=== PATIENT | female | born 1995 | race American Indian/Alaskan Native ===

== ENCOUNTER 2020-06-09 00:13 | Outpatient (CLI) | payer MEDICAID, OTHER ==
[2020-06-09] MEDS ORDERED: LACTATED RINGERS 500 ML IV ONE (00:27)
[2020-06-09 00:54] LABS: Bacteria,Urine 1+ /HPF (Negative); Bilirubin,Urine NEG (Negative); Blood,Urine NEG (Negative); Color,Urine Yellow (Yellow); Mucus,Urine FEW /HPF; Protein,Urine <15 mg/dL mg/dL (Negative); Urobilinogen,Urine < 2.0 mg/dL (<2.0)
[2020-06-09] MEDS ORDERED: TERBUTALINE 1 MG/1 ML INJ SUB-Q SCH (01:00)
[2020-06-09 01:39] VITALS: BP 106/57
[2020-06-09] MEDS ORDERED: NIFEdipine*For Tocolysis only* 10 MG CAPSULE PO ONE (02:47)
== END 2020-06-09 02:58 | disposition home or self-care (01) ==
LOC: TRG 00:13 → APU 00:15 → TRG 02:58
PROVIDERS: ATTEND Obstetrics & Gynecology
DX: O62.9 Abnormality of forces of labor, unspecified (principal); O99.343 Other mental disorders complicating pregnancy, third trimester; F41.9 Anxiety disorder, unspecified; F32.9 Major depressive disorder, single episode, unspecified; Z3A.31 31 weeks gestation of pregnancy
CPT/HCPCS: 36415; 59025; 81001; 82731; J7120; 96360

== ENCOUNTER 2020-06-26 01:37 | Outpatient (CLI) | payer MEDICAID ==
[2020-06-26 01:52] VITALS: BP 129/68
[2020-06-26] MEDS ORDERED: LACTATED RINGERS 1,000 ML IV ONE (02:17)
[2020-06-26 02:49] LABS: Bacteria,Urine 1+ /HPF (Negative); Bilirubin,Urine NEG (Negative); Blood,Urine MOD (Negative); Color,Urine Yellow (Yellow); Urobilinogen,Urine < 2.0 mg/dL (<2.0)
[2020-06-26] MEDS ORDERED: TERBUTALINE 1 MG/1 ML INJ SUB-Q ONE (03:52)
[2020-06-26] MEDS ORDERED: BUTORPHANOL 2 MG/1 ML INJ IV ONE (03:53)
== END 2020-06-26 05:15 | disposition home or self-care (01) ==
LOC: TRG 01:37 → APU 01:39 → TRG 05:15
PROVIDERS: ATTEND Obstetrics & Gynecology
DX: O26.893 Other specified pregnancy related conditions, third trimester (principal); R10.30 Lower abdominal pain, unspecified; M54.5 Low back pain; O47.03 False labor before 37 completed weeks of gestation, third trimester; Z3A.33 33 weeks gestation of pregnancy
CPT/HCPCS: 59025; 81001; 96361; 96372; 96374; J0595; J3105; J7120; 96360

== ENCOUNTER 2020-08-11 11:23 | Inpatient (IN) | payer MEDICAID ==
[2020-08-11] MEDS ORDERED: LOPERAMIDE 2 MG CAP PO PRN (13:23)
[2020-08-11] MEDS ORDERED: CARBOPROST TROMETHAMINE 250 MCG/1 ML INJ IM PRN (13:23)
[2020-08-11] MEDS ORDERED: miSOPROStol 200 MCG TAB PR PRN (13:23)
[2020-08-11] MEDS ORDERED: ePHEDrine SULFATE 50 MG/1 ML INJ IV PRN ×2 (13:23→16:21)
[2020-08-11] MEDS ORDERED: LIDOCAINE (2%) 20 MG/1 ML VIAL 20 ML MDV INFILTRATI ONE (13:23)
[2020-08-11] MEDS ORDERED: BUTORPHANOL 2 MG/1 ML INJ IV PRN (13:23)
[2020-08-11] MEDS ORDERED: MINERAL OIL 30 ML ORAL LIQD PO PRN (13:23)
[2020-08-11] MEDS ORDERED: METHYLERGONOVINE MALEATE 0.2 MG/ML VIAL IM PRN (13:23)
[2020-08-11] MEDS ORDERED: TERBUTALINE 1 MG/1 ML INJ SUB-Q PRN (13:23)
[2020-08-11] MEDS ORDERED: OXYTOCIN 10 UNIT/1 ML INJ IM PRN (13:23)
[2020-08-11] MEDS ORDERED: OXYTOCIN DRIP 30 UNITS/500 ML BAG IV SCH (14:00)
[2020-08-11] MEDS: LACTATED RINGERS 1,000 ML IV SCH ×4 (14:31→22:12)
[2020-08-11 15:13] LABS: Hematocrit 38.3 % (30.3-42.9); Hemoglobin 13.5 gm/dl (10.1-14.3); Mean Corpuscular HGB Conc 35 % (30-34); Mean Corpuscular Volume 92 fl (79-97); Platelet Count 232 K/mm3 (140-440); Red Blood Count 4.17 M/mm3 (3.65-5.03); Red Cell Distribution Width 14.2 % (13.2-15.2)
--- NOTE | 2020-08-11 15:46 | Anesthesia Consultation ---
Anesthesia Consult and Med Hx Date of service: 08/11/20 - Airway Anesthetic Teeth Evaluation: Good ROM Head & Neck: Adequate Mental/Hyoid Distance: Adequate Mallampati Class: Class II Intubation Access Assessment: Probably Good - Pulmonary Exam CTA: Yes - Cardiac Exam Cardiac Exam: RRR - Pre-Operative Health Status ASA Pre-Surgery Classification: ASA2 Proposed Anesthetic Plan: Epidural - Pulmonary Hx Asthma: Yes (as a child) - Cardiovascular System Hx Hypertension: No - Central Nervous System Hx Seizures: No Hx Psychiatric Problems: Yes (depression) - Endocrine Hx Renal Disease: No Hx Hypothyroidism: No Hx Hyperthyroidism: No - Hematic Hx Anemia: No Hx Sickle Cell Disease: No - Other Systems Hx Alcohol Use: No (not since )
--- NOTE | 2020-08-11 15:56 | Progress Note ---
Labor Epidural - Labor Epidural Start Time: 15:37 Stop Time: 15:50 Performed by:: EWELINA HIGHTOWER Procedure: Patient is requesting epidural for labor pain. H&P, and labs reviewed. Procedure explained, questions answered, consent obtained. Patient in sitting position with blood pressure cuff and pulse ox on and working. Timeout performed immediately before start of procedure. Sterile chlorahexadine 0.5% prep/drape. 3 mL 1% lidocaine skin wheal at L[3]-L[4]. 18-gauge LoginRadiustead epidural needle advanced to [id number] with saline at [7] cm. Epidural catheter advanced to [12] cm, negative aspiration for blood and csf, negative test dose 3 ml 1.5% lidocaine with epinephrine. Epidural dexmedetomidine [30] mcg administered. Sterile steri-strips and tegaderm applied, followed by tape reinforcement. Patient tolerated procedure well. Rao CERDA
[2020-08-11] MEDS ORDERED: fentaNYL-BUPIV 2 MCG/ML-0.125% 200 MCG/100 ML BAG EPIDURAL ONE (16:21)
[2020-08-11] MEDS ORDERED: NALOXONE 2 MG/2 ML INJ IV PRN (17:00)
[2020-08-11] MEDS ORDERED: fentaNYL-BUPIV 2 MCG/ML-0.125% 200 MCG/100 ML BAG EPIDURAL SCH (17:00)
--- NOTE | 2020-08-11 18:56 | History and Physical Report ---
History of Present Illness Date of examination: 08/11/20 Date of admission: 08/11/20 13:57 Chief complaint: I am having contractions History of present illness: Patient is a 25-year-old 3 para 0 who presents with complaint of regular contractions at 40 weeks and 1 day. Patient has an EDC of 08/10/2020. She transferred into just few months healthcare approximately 26 weeks gestation. She has had uncomplicated course. She is GBS negative. She is HSV-2 positive. Past History Past Medical History: no pertinent history Past Surgical History: no surgical history [employer] History: herpes Family/Genetic History: none Social history: - Obstetrical History Expected Date of Delivery: 08/10/20 Actual Gestation: 40 Week(s) 1 Day(s) : 3 Para: 0 Number of Living Children: 0 Medications and Allergies Allergies Allergy/AdvReac Type Severity Reaction Status Date / Time Penicillins Allergy Hives Verified 08/11/20 13:32 Home Medications Medication Instructions Recorded Confirmed Last Taken Type No Known Home Medications [No 08/11/20 08/11/20 Unknown History Reported Home Medications] Active Meds: Active Medications Butorphanol Tartrate (Butorphanol 2 Mg/1 Ml Inj) 2 mg IV Q2H PRN PRN Reason: Pain , Severe (7-10) Last Admin: 08/11/20 14:25 Dose: 2 mg Documented by: Carboprost Tromethamine (Carboprost Tromethamine 250 Mcg/1 Ml Inj) 250 mcg IM ONCE PRN PRN Reason: Uterine Bleeding Ephedrine Sulfate (Ephedrine Sulfate 50 Mg/1 Ml Inj) 10 mg IV Q2M PRN PRN Reason: Hypotension Lactated Ringer's (Lactated Ringers) 1,000 mls @ 125 mls/hr IV DIRECT ELIEZER Last Admin: 08/11/20 16:40 Dose: 125 mls/hr Documented by: Oxytocin/Sodium Chloride (Pitocin/Ns 30 Unit/500ml) 30 units in 500 mls @ 40 mls/hr IV TITR ELIEZER; Protocol Fentanyl/Bupivacaine/Sodium Chlor (Fentanyl-Bupiv 2 Mcg/Ml-0.125%) 200 mcg in 100 mls @ 12 mls/hr EPIDURAL TITR ELIEZER; Protocol Loperamide HCl (Loperamide 2 Mg Cap) 2 mg PO ONCE PRN PRN Reason: give with Hemabate Methylergonovine Maleate (Methylergonovine Maleate 0.2 Mg/Ml Vial) 0.2 mg IM ONCE PRN PRN Reason: Uterine Bleeding Mineral Oil (Mineral Oil 30 Ml Oral Liqd) 30 ml PO QHS PRN PRN Reason: Constipation Misoprostol (Misoprostol 200 Mcg Tab) 800 mcg KS ONCE PRN PRN Reason: Uterine Bleeding Naloxone HCl (Naloxone 2 Mg/2 Ml Inj) 0.2 mg IV Q5M PRN PRN Reason: Respiratory sedation Oxytocin (Oxytocin 10 Unit/1 Ml Inj) 10 unit IM ONCE PRN PRN Reason: Uterine Bleeding Terbutaline Sulfate (Terbutaline 1 Mg/1 Ml Inj) 0.25 mg SUB-Q ONCE PRN PRN Reason: Hyperstimulation/Hypertonicity Review of Systems All systems: negative Constitutional: weight gain, weakness Genitourinary: leakage of fluid, contractions - Vital Signs Vital signs: Vital Signs Pulse BP 109 H 122/59 08/11/20 11:33 08/11/20 11:33 Temp Pulse Resp BP Pulse Ox 98.3 F 99 H 20 112/55 100 08/11/20 14:09 08/11/20 18:47 08/11/20 16:34 08/11/20 18:45 08/11/20 18:47 - Physical Exam Breasts: Cardiovascular: Regular rate, Normal S1, Normal S2 Lungs: Positive: Clear to auscultation, Normal air movement Abdomen: Positive: normal appearance, soft, normal bowel sounds. Negative: distention, tenderness Genitourinary (Female): Positive: normal external genitalia, normal perenium Vulva: both: normal Vagina: Positive: normal moisture. Negative: discharge Cervix: Negative: lesion, discharge Uterus: Positive: normal size, enlarged (Gravid), normal contour Adnexa: both: normal Anus/Rectum: Positive: normal perianal skin, heme negative. Negative: rectal mass, hemorrhoids Extremities: Deep Tendon Reflex Grade: Normal +2 - Obstetrical FHR: auscultation normal Cervical Dilatation: 4 station: 80 Uterine Contraction Frequency (min): -1 Uterine Contraction Pattern: Regular Uterine Tone Measurement Phase: Contraction Uterine Contraction Intensity: Moderate Results Result Diagrams: 08/11/20 14:55 Abnormal lab results 08/11/20 Range/Units 14:55 WBC 17.1 H (4.5-11.0) K/mm3 MCHC 35 H (30-34) % All other labs normal. Assessment and Plan IUP at 40 and 1 in active labor. Admit for labor. AROM when able. Patient may have epidural. Anticipate .
[2020-08-11] MEDS ORDERED: ACETAMINOPHEN 325 MG TAB PO ONE (23:57)
[2020-08-12] MEDS ORDERED: GENTAMICIN 100 MG in SODIUM CHLORIDE 0.9% 100 ML IV SCH (00:15)
[2020-08-12] MEDS: GENTAMICIN/NS 100 MG/100 ML 100 MG/100 ML BAG IV SCH ×3 (01:26→18:55)
--- NOTE | 2020-08-12 02:18 | Procedure Note ---
OB Delivery Note - Delivery Date of Delivery: 08/12/20 Surgeon: MANDIE LITTLE Estimated blood loss: other (250) - Vaginal Delivery presentation: vertex Delivery position: OP Intrapartum events: febrile- temp >100.3 Delivery induction: none Delivery augmentation: rupture of membranes Delivery monitor: external FHT, external uterine Route of delivery: Delivery placenta: spontaneous Delivery cord: 3 umbilical vessels Episiotomy: none Delivery laceration: none Anesthesia: epidural Delivery comments: Viable female delivered over intact perineum at 1 :a.m. Infant had loose nuchal cord that was easily reduced on the perineum. had spontaneous cry and was placed on maternal abdomen. Cord was clamped and cut when finished pulsating. Weight 6 pounds 13 ounces. Apgars 8/9. Placenta was delivered spontaneously and intact with three-vessel cord. No lacerations. Excellent hemostasis. Patient tolerated procedure well. - Infant A at 1 minute: 8 at 5 minutes: 9 Gender: Female (6 pounds 13 ounces)
[2020-08-12] MEDS ORDERED: WITCH HAZEL/ GLYCERIN PAD TP PRN (04:14)
[2020-08-12] MEDS ORDERED: LANOLIN/ZINC/DIMETHICONE (LANSINOH) 7 GM TP PRN (04:14)
[2020-08-12] MEDS ORDERED: MAGNESIUM HYDROXIDE (MOM) ORAL LIQD UDC PO PRN (04:14)
[2020-08-12] MEDS ORDERED: diphenhydrAMINE 25 MG CAP PO PRN (04:14)
[2020-08-12] MEDS ORDERED: PROMETHAZINE 25 MG TAB PO PRN (04:14)
[2020-08-12] MEDS ORDERED: PROMETHAZINE 25 MG RECT SUPP PR PRN (04:14)
[2020-08-12] MEDS ORDERED: ONDANSETRON 4 MG/2 ML INJ IV PRN (04:14)
[2020-08-12] MEDS: IBUPROFEN 600 MG TAB PO SCH ×2 (05:33→12:28)
[2020-08-12] MEDS ORDERED: LACTATED RINGERS 1,000 ML IV SCH (08:45)
[2020-08-12 16:36] LABS: Hematocrit 30.1 % (30.3-42.9); Hemoglobin 10.2 gm/dl (10.1-14.3)
--- NOTE | 2020-08-12 16:42 | Post Anesthesia Evaluation ---
- Post Anesthesia Evaluation Patient Participated: Yes Airway Patent: Yes Stable Respiratory Function: Yes Nausea/Vomiting: No Temp > 96.8F: Yes Pain Manageable: Yes Adequeate Hydration: Yes Anesthesia Complications: No Block Receding Appropriately: Yes Patient on Ventilator: No
[2020-08-12] MEDS ORDERED: ALBUTEROL 2.5 MG/3 ML NEBU IH ONE (16:49)
[2020-08-12] MEDS ORDERED: ALBUTEROL 2.5 MG/3 ML NEBU IH PRN (17:15)
[2020-08-12] MEDS ORDERED: FAMOTIDINE 10 MG TAB PO PRN (17:23)
--- NOTE | 2020-08-12 20:29 | Progress Note ---
Assessment and Plan PPD 1 s/p . Dong well. Pt reports no further asthma attacks. Plan for discharge tomorrow. Subjective - Subjective Date of service: 08/12/20 Interval history: Patient is a 25-year-old 3 para 0 who presents with complaint of regular contractions at 40 weeks and 1 day. Patient has an EDC of 08/10/2020. She transferred into just few months healthcare approximately 26 weeks gestation. She has had uncomplicated course. She is GBS negative. She is HSV-2 positive. Patient reports: appetite normal, voiding normally, pain well controlled, ambulating normally [place]: doing well Objective - Vital Signs Latest vital signs: Vital Signs Temp Pulse Pulse Resp Resp BP Pulse Ox 08/12/20 16:50 116 H 24 08/12/20 12:15 98.7 F 108 H 20 110/58 98 08/12/20 07:34 98.9 F 98 H 20 105/46 97 08/12/20 03:28 98.2 F 08/12/20 03:14 100 H 116/54 08/12/20 02:58 101 H 112/54 08/12/20 02:44 108 H 111/54 08/12/20 02:34 98 H 127/61 08/12/20 02:14 101 H 123/59 08/12/20 01:58 98 F 17 08/12/20 01:52 103 H 127/62 08/12/20 00:40 100.4 F H 08/12/20 00:23 65 99 08/11/20 23:54 102.2 F H 08/11/20 23:24 116 H 100 08/11/20 23:19 111 H 100 08/11/20 23:14 115 H 100 08/11/20 23:09 95 H 100 08/11/20 23:04 96 H 100 08/11/20 22:59 107 H 112/66 100 08/11/20 22:55 70 L 08/11/20 22:54 116 H 95 08/11/20 22:49 62 83 L 08/11/20 22:48 143 H 100 08/11/20 22:43 74 78 L 08/11/20 22:37 126 H 100 08/11/20 22:32 98 H 91 08/11/20 22:27 96 H 100 08/11/20 22:22 97 H 100 08/11/20 22:17 88 99 08/11/20 22:12 97.7 F 88 16 100 08/11/20 22:07 100 H 100 08/11/20 22:02 82 100 08/11/20 21:57 91 H 99 08/11/20 21:52 84 100 08/11/20 21:47 85 98 08/11/20 21:42 91 H 99 08/11/20 21:37 97 H 98 08/11/20 21:32 91 H 97 08/11/20 21:27 96 H 97 08/11/20 21:22 101 H 97 08/11/20 21:17 95 H 98 08/11/20 21:12 104 H 97 08/11/20 21:07 94 H 118/68 98 08/11/20 21:02 95 H 97 08/11/20 20:57 92 H 98 08/11/20 20:52 84 97 08/11/20 20:47 85 96 08/11/20 20:42 79 96 08/11/20 20:37 84 96 08/11/20 20:32 80 96 Intake and Output 08/12/20 08/12/20 08/12/20 06:59 14:59 22:59 Intake Total 150 1590 360 Output Total 550 600 Balance -400 990 360 Intake: IV 150 150 CLEOCIN 900 MG/50 mL 900 50 50 mg In 50 ml @ 100 mls/hr IV Q8H ELIEZER Rx#:[id number] GENTAMICIN/NS 100 MG/100 100 100 ML 100 mg In 100 ml @ 133 .333 mls/hr IV Q8H ELIEZER Rx #:[id number] Oral 1440 360 Output: Urine 550 600 Void 550 600 Other: Total, Intake Amount 840 360 Total, Output Amount 550 600 # Voids Void 1 1 Estimated Blood Loss 250 - Exam Breasts: Present: deferred Cardiovascular: Present: Regular rate, Normal S1, Normal S2 Lungs: Present: Clear to auscultation, Normal air movement Abdomen: Present: normal appearance, soft, normal bowel sounds Uterus: Present: normal, firm Extremities: Present: normal Deep Tendon Reflex Grade: Normal +2 - Labs Labs: Abnormal lab results 08/12/20 Range/Units 15:54 Hct 30.1 L D (30.3-42.9) %
[2020-08-13] MEDS: IBUPROFEN 600 MG TAB PO SCH ×4 (00:15→18:02)
[2020-08-13] MEDS: GENTAMICIN/NS 100 MG/100 ML 100 MG/100 ML BAG IV SCH ×2 (01:30→10:50)
--- NOTE | 2020-08-13 17:08 | Discharge Summary ---
Providers - Providers Date of Admission: 08/11/20 13:57 Date of discharge: 08/13/20 Attending physician: MANDIE LITTLE Primary care physician: MANDIE LITTLE Hospitalization Reason for admission: active labor Delivery: complications: none Discharge diagnosis: IUP at term delivered [place] baby: female Condition at discharge: Good Disposition: DC-01 TO HOME OR SELFCARE Plan - Discharge Medications Prescriptions: Ibuprofen [Motrin] 800 mg PO Q8HR PRN #40 tablet PRN Reason: Pain, Mild (1-3) HYDROcodone/APAP 5-325 [[place] 5/325] 1 each PO Q6HR PRN #15 tablet PRN Reason: Pain - Provider Discharge Summary Activity: routine, no sex for 6 weeks, no heavy lifting 4 weeks, no strenuous exercise Diet: routine Instructions: routine Additional instructions: [] Smoking cessation referral if applicable(refer to patient education folder for contact #) [] Refer to [facility] Call your doctor immediately for: * Fever > 100.5 * Heavy vaginal bleeding ( >1 pad per hour) * Severe persistent headache * Shortness of breath * Reddened, hot, painful area to leg or breast * Drainage or odor from incision. * Keep incision clean and dry at all times and follow doctor's instructions regarding bathing/showering - Follow up plan Follow up: MANDIE LITTLE MD [Primary Care Provider] - 6 Weeks
[2020-08-14 08:24] VITALS: BP 111/58
== END 2020-08-14 11:30 | disposition home or self-care (01) | DRG 774 ==
LOC: TRG 11:23 → APU 11:24 → LD 13:53 → TRG 13:54 → LD 13:57 → OB 08-12 03:55
PROVIDERS: ADMIT Obstetrics & Gynecology; ATTEND Obstetrics & Gynecology
PROC: 10E0XZZ Delivery of Products of Conception, External Approach (ICD-10-PCS; principal; 2020-08-12)
PROC: 3E0R3BZ Introduction of Anesthetic Agent into Spinal Canal, Percutaneous Approach (ICD-10-PCS; 2020-08-12)
PROC: 00HU33Z Insertion of Infusion Device into Spinal Canal, Percutaneous Approach (ICD-10-PCS; 2020-08-12)
DX: O69.81X0 Labor and delivery complicated by cord around neck, without compression, not applicable or unspecified (principal); O98.52 Other viral diseases complicating childbirth; Z3A.40 40 weeks gestation of pregnancy; Z37.0 Single live birth; Z88.0 Allergy status to penicillin; Z20.822 Contact with and (suspected) exposure to COVID-19; B00.9 Herpesviral infection, unspecified; O99.52 Diseases of the respiratory system complicating childbirth; J45.909 Unspecified asthma, uncomplicated; O99.344 Other mental disorders complicating childbirth; F32.9 Major depressive disorder, single episode, unspecified
CPT/HCPCS: 36415; 82565; 85014; 85018; 85027; 86592; 86850; 86900; 86901; 94640; 99211; G0378; G0463; J0595; J1580; J7120; U0003